=== PATIENT | female | born 2000 | race Caucasian/White ===

== ENCOUNTER 2018-02-04 23:03 | Emergency (ER) | payer SELFPAY ==
[2018-02-04] MEDS ORDERED: Sodium Chloride 0.9% 1,000 ML IV ONE (23:18)
[2018-02-04] MEDS ORDERED: DiphenhydrAMINE 50 mg/ml Inj IVP STA (23:19)
[2018-02-04 23:23] VITALS: RESP 18; TEMP 98.9
[2018-02-04] MEDS ORDERED: DiphenhydrAMINE 50 mg/ml Inj ONE (23:23)
[2018-02-04 23:25] LABS: BASO % 0.3 % (0.0-2.0); EOS # 0.1 K/uL (0.0-0.7); EOS % 0.7 % (0.0-4.0); LYMPH # 1.7 K/uL (1.0-4.3); LYMPH % 20.6 % (20.0-40.0); MEAN CELL VOLUME 80.6 fL (81.0-99.0); MEAN CORPUSCULAR HGB CONC 33.5 g/dL (33.0-37.0); MEAN PLATELET VOLUME 8.8 fL (7.2-11.7); MONO # 0.2 K/uL (0.0-0.8); MONO % 2.9 % (0.0-10.0); NEUT # 6.2 K/uL (1.8-7.0); NEUT % 75.5 % (50.0-75.0); RBC 5.21 Mil/uL (3.80-5.20); RED CELL DISTRIBUTION WIDTH 16.7 % (11.5-14.5); WHITE BLOOD COUNT 8.3 K/uL (4.8-10.8)
[2018-02-04] MEDS ORDERED: Sodium Chloride 0.9% 1,000 ML ONE (23:27)
[2018-02-04 23:37] LABS: ALB/GLOB RATIO 1.2 (1.0-2.1); ALBUMIN 3.7 g/dL (3.5-5.0); ALT/SGPT 41 U/L (9-52); AST/SGOT 35 U/L (14-36); BLOOD UREA NITROGEN 6 mg/dL (7-17); CALCIUM 8.4 mg/dl (8.6-10.4); GFR AFRICAN-AMERICAN > 60; GFR NON-AFRICAN AMERICAN > 60
--- NOTE | 2018-02-05 00:26 | C.PDOC ---
History Of Present Illness 18 year old female, with a past medical history of chronic urticaria since September/2017, who was brought to the emergency department by EMS for facial swelling onset x2 hrs ago. Patient states she has been to an integrated marketing specialist but hasn't been able to figure out the reason. She reports having urticaria every night, not itchy but tonight she felt itchy and had a scratchy sensation in her throat with difficulty breathing. Per EMS, patient refused IV access in the field because medications don't work for her. No further medical complaints. PMD: None provided. Time Seen by Provider: 02/04/18 23:04 Chief Complaint (Nursing): Allergic Reaction History Per: Patient History/Exam Limitations: no limitations Onset/Duration Of Symptoms: Hrs (x2) Associated Symptoms: Swelling (facial) Past Medical History Reviewed: Historical Data, Nursing Documentation, Vital Signs Vital Signs: Last Vital Signs Temp 98.9 F 02/04/18 23:05 Pulse 71 02/05/18 00:43 Resp 18 02/05/18 00:43 BP 103/58 L 02/05/18 00:43 Pulse Ox 100 02/05/18 00:43 - Medical History Other PMH: Chronic urticaria Surgical History: No Surg Hx Family History: States: No Known Family Hx - Social History Hx Tobacco Use: No Hx Alcohol Use: No Hx Substance Use: No - Immunization History Hx Tetanus Toxoid Vaccination: No Hx Influenza Vaccination: No Hx Pneumococcal Vaccination: No Review Of Systems Except As Marked, All Systems Reviewed And Found Negative. ENT: Positive for: Other (itchy and scratchy throat) Respiratory: Positive for: Shortness of Breath Skin: Positive for: Other (facial swelling) Physical Exam - Physical Exam Appears: Other (comfortable) Skin: Normal Color, Warm, Dry, Rash (scattered urticaria in back and chest) Head: Atraumatic, Normacephalic Eye(s): bilateral: Other (mild periorbital swelling) Ear(s): Bilateral: Normal Nose: Normal Oral Mucosa: Moist, No Drooling Tongue: No Swelling Lips: Swelling (mild ) Throat: Normal (tonsils ), Other (uvula midline and normal) Neck: Normal ROM Cardiovascular: Rhythm Regular, No Murmur Respiratory: Normal Breath Sounds, No Accessory Muscle Use, No Stridor, No Wheezing, Other (speaking full sentences) Gastrointestinal/Abdominal: Normal Exam, Soft, No Tenderness Back: Normal Inspection, No CVA Tenderness, No Vertebral Tenderness Extremity: Normal ROM (upper and lower extremities), No Deformity, No Swelling Neurological/Psych: Oriented x3 Gait: Steady ED Course And Treatment - Laboratory Results Result Diagrams: 02/04/18 23:22 02/04/18 23:22 O2 Sat by Pulse Oximetry: 98 (RA) Pulse Ox Interpretation: Normal Progress Note: Initial Plan: CMP, CBC w/ differential, Benadryl 25 mg IVP, SOLU- medrol 125 mg IVP, Sodium Chloride 0.9% 1,000 ml IV 1,000 mls/hr. Patient was advised she needed a line. Disposition Counseled Patient/Family Regarding: Studies Performed, Diagnosis, Need For Followup, Rx Given - Disposition Referrals: [facility] [Outside] Disposition: AGAINST MEDICAL ADVICE Disposition Time: 01:20 Condition: STABLE Additional Instructions: FOLLOW UP WITH YOUR DOCTOR/CLINIC IN 1-2 DAYS RETURN TO ER IF SYMPTOMS WORSEN Prescriptions: DiphenhydrAMINE [Benadryl] 25 mg PO Q6 PRN #20 cap PRN Reason: Itching / Pruritus predniSONE [predniSONE Tab] 40 mg PO DAILY #6 tab Instructions: Hives (DC), Leaving Against Medical Advice Forms: [employer] (Kyrgyz) Print Language: GREEK - POA Present On Arrival: None - Clinical Impression Clinical Impression: Urticaria, Facial swelling, Left against medical advice - Scribe Statement The provider has reviewed the documentation as recorded by the Torrey Jackson Provider Attestation: All medical record entries made by the Fransicoibthai were at my direction and personally dictated by me. I have reviewed the chart and agree that the record accurately reflects my personal performance of the history, physical exam, medical decision making, and the department course for this patient. I have also personally directed, reviewed, and agree with the discharge instructions and disposition.
[2018-02-05 00:49] VITALS: BP 103/58; PULSE 71
[2018-02-05 01:21] VITALS: O2SAT 98
== END 2018-02-05 01:35 | disposition left against medical advice (07) ==
LOC: SUPCPDRO 23:03 → C.ER 23:03
DX: L50.0 Allergic urticaria (principal); R22.0 Localized swelling, mass and lump, head
CPT/HCPCS: 80053; 85025; 96361; 96374; 96375; 99284; J1200; J2930; J7040